=== PATIENT | female | born 1965 | race American Indian/Alaskan Native ===

== ENCOUNTER 2017-10-26 14:10 | Outpatient (CLI) | payer OTHER ==
--- NOTE | 2017-10-26 15:36 | Mammography Report ---
Bilateral mammogram and left breast ultrasound: The patient presents with a palpable nodule in the left breast inferiorly. A marker placed over the area of concern. Routine views were obtained. There is a heterogeneously dense and diffusely distributed fibroglandular pattern bilaterally. The pattern appears to be somewhat micro-nodular but there is no definable nodule and specifically in the area of concern there is no focal findings. There is no architectural distortion and no significant calcification. CAD used. Ultrasound over the area of concern in the 6:00 location demonstrates a circumscribed anechoic mass which is slightly elongated measuring 4 x 7 mm. There is enhancement of distal echoes. No other findings. Impression: The ultrasound findings are consistent with a simple cyst corresponding to the palpable area. No suspicious mammographic findings. Recommendation: Clinical followup. Unless otherwise indicated annual mammogram followup. BI-RADS CATEGORY: 2 = Benign ACR BI-RADS MAMMOGRAPHIC CODES: 0 = Needs additional imaging evaluation; 1 = Negative; 2 = Benign; 3 = Probably benign; 4 = Suspicious; 5 = Malignant; 6 = Known biopsy-proven malignancy COMMENT: 1. Dense breast tissue, i.e., adenosis, fibrocystic changes, etc., may obscure an underlying neoplasm. 2. Approximately 10% of cancers are not detected with mammography. 3. A negative mammography report should not delay biopsy if a clinically suspicious mass is present.
== END 2017-10-26 14:11 | disposition home or self-care (01) ==
LOC: SPVWC 14:10
PROVIDERS: ATTEND Internal Medicine
DX: N63.23 Unspecified lump in the left breast, lower outer quadrant (principal)
CPT/HCPCS: 77066